=== PATIENT | male | born 1970 | race Asian ===

== ENCOUNTER 2018-12-02 08:11 | Emergency (ER) | payer SELFPAY ==
[2018-12-02 08:16] VITALS: BP 163/98
--- NOTE | 2018-12-02 08:26 | Emergency Department Report ---
ED Back Pain/Injury HPI - General Chief Complaint: Back Pain/Injury Stated Complaint: BACK PAIN Time Seen by Provider: 12/02/18 08:18 Source: patient, EMS Limitations: No Limitations - History of Present Illness Initial Comments: Patient is a 47-year-old gentleman who is complaining of over a year of lower back pain. Patient states pain is worse with movement better with rest. Patient does state he has some increased pain when he is at work and does do heavy lifting. Patient states he has not taken any wync-nbs-rggxhhb medications. He denies urinary or bladder dysfunction, hematuria, decreased urination, urinary frequency or dysuria. Patient states is been no nausea vomiting diarrhea and denies trauma. Severity scale (0 -10): 6 Quality: stabbing Consistency: constant Worsens With: movement - Related Data Allergies Allergy/AdvReac Type Severity Reaction Status Date / Time oxycodone [From OxyContin] Allergy Itching Verified 12/02/18 08:15 ED Review of Systems ROS: Stated complaint: BACK PAIN Other details as noted in HPI Comment: All other systems reviewed and negative ED Back Pain Physical Exam - Exam General: Vital signs noted. No distress. Alert and acting appropriately. Back/Abdomen: Yes Perilumbar Tenderness, No Abdominal Tenderness, No Perithor acic Tenderness, No Sacroiliac Tenderness, No Flank Tenderness, No Straight Leg Raise Pain Neuro: Yes Normal Sensation, Yes Normal DTR's, Yes Normal Gait, No Motor Weakness ED Course Vital Signs 12/02/18 08:15 Temperature 97.7 F Pulse Rate 103 H Respiratory 16 Rate Blood Pressure 163/98 O2 Sat by Pulse 97 Oximetry ED Medical Decision Making - Medical Decision Making Patient is a nominal emergency at this time. Patient's back pain is chronic. Patient clinically does not have cauda equina syndrome. The patient states he has not taken any dlmt-iju-hnkelfa medications. Patient will be referred to orthopedics. Patient also encouraged to take pqra-laj-lgqkohx ibuprofen up to 800 mg every 6-8 hours. Patient also given information on icing his back for inflammation. Critical care attestation.: If time is entered above; I have spent that time in minutes in the direct care of this critically ill patient, excluding procedure time. ED Disposition Clinical Impression: Back pain Qualifiers: Back pain location: low back pain Chronicity: chronic Back pain laterality: unspecified Sciatica presence: without sciatica Qualified Code(s): M54.5 - Low back pain; G89.29 - Other chronic pain Disposition: MED SCREENING EXAM-LEFT Is pt being admited?: No Does the pt Need Aspirin: No Condition: Stable Instructions: Chronic Back Pain (ED) Additional Instructions: Please take ibuprofen for back pain. He can take up to 800 mg every 6-8 hours Referrals: TENZIN REHMAN MD [Staff Physician] - 3-5 Days ALBANY DANE HOBBS MD [Referring] - 3-5 Days Time of Disposition: 08:26
== END 2018-12-02 08:42 | disposition left against medical advice (07) ==
LOC: ED 08:11
DX: M54.5 Low back pain (principal); G89.29 Other chronic pain; Z88.5 Allergy status to narcotic agent

== ENCOUNTER 2019-06-14 19:50 | Emergency (ER) | payer SELFPAY ==
[2019-06-14 19:55] VITALS: BP 130/77
[2019-06-14 20:22] LABS: Basophils # (Auto) 0.1 K/mm3 (0.0-0.1); Basophils % (Auto) 0.9 % (0.0-1.8); Eosinophils # (Auto) 0.5 K/mm3 (0.0-0.4); Eosinophils % (Auto) 8.4 % (0.0-4.3); Hematocrit 42.9 % (35.5-45.6); Hemoglobin 14.6 gm/dl (11.8-15.2); Lymphocytes # (Auto) 2.4 K/mm3 (1.2-5.4); Lymphocytes % (Auto) 37.7 % (13.4-35.0); Mean Corpuscular HGB Conc 34 % (32-34); Mean Corpuscular Volume 96 fl (84-94); Monocytes % (Auto) 15.8 % (0.0-7.3); Platelet Count 266 K/mm3 (140-440); Red Blood Count 4.48 M/mm3 (3.65-5.03); Red Cell Distribution Width 14.3 % (13.2-15.2)
[2019-06-14 20:44] LABS: Alanine Aminotransferase 20 units/L (7-56); Albumin 4.3 g/dL (3.9-5); BUN/Creatinine Ratio 14; Blood Urea Nitrogen 10 mg/dL (9-20); Calcium 9.2 mg/dL (8.4-10.2); Hemolysis Index 13
[2019-06-14] MEDS ORDERED: ONDANSETRON 4 MG/2 ML INJ IV STA (21:00)
[2019-06-14] MEDS ORDERED: SODIUM CHLORIDE 0.9% 1000 ML 1,000 ML IV ONE (21:00)
[2019-06-14] MEDS ORDERED: HYOSCYAMINE SUBL 0.125 MG TAB SL ONE (21:00)
--- NOTE | 2019-06-14 21:02 | Emergency Department Report ---
ED Abdominal Pain HPI - General Chief Complaint: Abdominal Pain Stated Complaint: ABDOMINAL PAIN Time Seen by Provider: 06/14/19 20:49 Source: patient Mode of arrival: Ambulatory Limitations: No Limitations - History of Present Illness MD Complaint: abdominal pain Location: diffuse Radiation: none Migration to: no migration Severity: mild Quality: dull Consistency: constant Improves With: nothing Worsens With: nothing Context: possible food poisoning (States that he made a chicken based sauce last night and ended again this morning and after eating it an hour later his symptoms began with abdominal cramping and nausea but no vomiting or diarrhea until he reached the emergency department about an hour ago had his first epis ode) Associated Symptoms: denies: vomiting, diarrhea, constipation, dysuria, hematuria, anorexia - Related Data Previous Rx's Medication Instructions Recorded Last Taken Type Hyoscyamine Subl [Levsin Sl 0.125 0.125 mg SL Q4HR PRN #30 tablet 06/14/19 Unknown Rx TAB] Ondansetron [Zofran ODT TAB] 8 mg PO Q12HR #14 tab.rapdis 06/14/19 Unknown Rx Allergies Allergy/AdvReac Type Severity Reaction Status Date / Time oxycodone [From OxyContin] Allergy Itching Verified 12/02/18 08:15 ED Review of Systems ROS: Stated complaint: ABDOMINAL PAIN Other details as noted in HPI Comment: All other systems reviewed and negative ED Past Medical Hx - Past Medical History Previous Medical History?: No - Surgical History Past Surgical History?: No Additional Surgical History: skin graft- left arm - Social History Smoking Status: Current Every Day Smoker Substance Use Type: Alcohol - Medications Home Medications: Home Medications Medication Instructions Recorded Confirmed Last Taken Type Hyoscyamine Subl [Levsin Sl 0.125 0.125 mg SL Q4HR PRN #30 tablet 06/14/19 Unknown Rx TAB] Ondansetron [Zofran ODT TAB] 8 mg PO Q12HR #14 tab.rapdis 06/14/19 Unknown Rx ED Physical Exam - General Limitations: No Limitations General appearance: alert, in no apparent distress - Head Head exam: Present: atraumatic, normocephalic, normal inspection - Eye Eye exam: Present: normal appearance, PERRL, EOMI. Absent: scleral icterus, conjunctival injection - ENT ENT exam: Present: mucous membranes moist - Neck Neck exam: Present: normal inspection - Respiratory Respiratory exam: Present: normal lung sounds bilaterally. Absent: respiratory distress - Cardiovascular Cardiovascular Exam: Present: regular rate, normal rhythm. Absent: systolic murmur, diastolic murmur, rubs, gallop - GI/Abdominal GI/Abdominal exam: Present: soft, tenderness, normal bowel sounds, other (No tenderness to Lopez's or McBurney's. No Molina sign no [place] no Rovsing there is diffuse tenderness with palpation abdomen is soft not distended). Absent: guarding, rebound, hypoactive bowel sounds, organomegaly, mass, pulsatile mass, hernia - Rectal Rectal exam: Present: deferred - Extremities Exam Extremities exam: Present: normal inspection - Back Exam Back exam: Present: normal inspection. Absent: CVA tenderness (R), CVA tenderness (L) - Neurological Exam Neurological exam: Present: alert, oriented X3 - Psychiatric Psychiatric exam: Present: normal affect, normal mood - Skin Skin exam: Present: warm, dry, intact, normal color. Absent: rash ED Course Vital Signs 06/14/19 19:53 Temperature 98.1 F Pulse Rate 93 H Respiratory 18 Rate Blood Pressure 130/77 O2 Sat by Pulse 100 Oximetry ED Medical Decision Making - Lab Data Result diagrams: 06/14/19 20:00 06/14/19 20:00 - Radiology Data Radiology results: [place] [address] Cat Scan Report Signed Patient: KE KENNEDY MR#: [id number] : 1970 Acct:[id number] Age/Sex: 48 / M ADM Date: 06/14/19 Loc: ED Attending Dr: Ordering Physician: TERESE ROCHA Date of Service: 06/14/19 Procedure(s): CT abdomen pelvis w con Accession Number(s): [id number] cc: TERESE ROCHA CT abdomen pelvis w con INDICATION / CLINICAL INFORMATION: MAIN: diffuse abdominal pain, [id number]. TECHNIQUE: All CT scans at this location are performed using CT dose reduction for ALARA by means of automated exposure control. COMPARISON: None available. FINDINGS: Limited lower thoracic images show no acute pulmonary disease. There is a 6 mm noncalcified pulmonary nodule in the right lower lobe (series #2, image 6). ABDOMEN: The gallbladder, liver, spleen, pancreas, kidneys and adrenal glands are normal. No acute findings are seen in the colon or small bowel. Pelvis: The appendix is normal. No dependent fluid collections. The urinary bladder appears normal. No skeletal abnormality. IMPRESSION: 1. No acute abnormalities. 2. Incidentally noted 6 mm right lower lobe pulmonary nodule. Follow-up CT imaging in 6-12 months is recommended. Signer Name: Helder Brown MD Signed: 06/14/2019 9:53 PM Workstation Name: [id number] Transcribed By: SUSHILA Dictated By: Helder Brown MD Electronically Authenticated By: Helder Brown MD Signed Date/Time: 06/14/192152 DD/ 48 TD/TT: - Medical Decision Making This patient presents with abdominal pain of unclear etiology. A CT scan was performed to evaluate for potential causes of the abdominal pain, however, neither the clinical exam nor the CT has identified an emergent etiology for the abdominal pain. Specifically, given the benign exam, the laboratory studies, and unremarkable CT, I have a very low suspicion for appendicitis, ischemic bowel, bowel perforation, or any other life threatening disease. I have discussed with the patient the level of uncertainty with undifferentiated abdominal pain and clearly explained the need to follow-up as noted on the discharge instructions, or return to the Emergency Department immediately if the pain worsens, develops fever, persistent and uncontrollable vomiting, or for any new symptoms or concerns. Critical care attestation.: If time is entered above; I have spent that time in minutes in the direct care of this critically ill patient, excluding procedure time. ED Disposition Clinical Impression: Abdominal pain, Diarrhea Disposition: DC-01 TO HOME OR SELFCARE Is pt being admited?: No Does the pt Need Aspirin: No Condition: Stable Instructions: Gastroenteritis (ED), Food Poisoning (ED), Acute Abdominal Pain (ED) Prescriptions: Hyoscyamine Subl [Levsin Sl 0.125 TAB] 0.125 mg SL Q4HR PRN #30 tablet PRN Reason: Spasms Ondansetron [Zofran ODT TAB] 8 mg PO Q12HR #14 tab.yohan
--- NOTE | 2019-06-14 21:57 | Cat Scan Report ---
CT abdomen pelvis w con INDICATION / CLINICAL INFORMATION: MAIN: diffuse abdominal pain, [id number]. TECHNIQUE: All CT scans at this location are performed using CT dose reduction for ALARA by means of automated e xposure control. COMPARISON: None available. FINDINGS: Limited lower thoracic images show no acute pulmonary disease. There is a 6 mm noncalcified pulmonary nodule in the right lower lobe (series #2, image 6). ABDOMEN: The gallbladder, liver, spleen, pancreas, kidneys and adrenal glands are normal. No acute findings are seen in the colon or small bowel. Pelvis: The appendix is normal. No dependent fluid collections. The urinary bladder appears normal. No skeletal abnormality. IMPRESSION: 1. No acute abnormalities. 2. Incidentally noted 6 mm right lower lobe pulmonary nodule. Follow-up CT imaging in 6-12 months is recommended. Signer Name: Helder Brown MD Signed: 06/14/2019 9:53 PM Workstation Name: [id number]
[2019-06-14 22:57] LABS: Bilirubin,Urine NEG (Negative); Blood,Urine NEG (Negative); Color,Urine Yellow (Yellow); Protein,Urine <15 mg/dL mg/dL (Negative); Urobilinogen,Urine < 2.0 mg/dL (<2.0)
== END 2019-06-14 23:10 | disposition home or self-care (01) ==
LOC: ED 19:50
DX: R10.84 Generalized abdominal pain (principal); R19.7 Diarrhea, unspecified; F17.200 Nicotine dependence, unspecified, uncomplicated; Z79.899 Other long term (current) drug therapy
CPT/HCPCS: 36415; 74177; 80053; 81001; 83690; 85025; 96361; 96374; 99284; J2405; J7030; Q9967

== ENCOUNTER 2019-09-08 09:10 | Emergency (ER) | payer SELFPAY ==
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
[2019-09-08] MEDS ORDERED: traMADol 50 MG TAB PO ONE (11:44)
[2019-09-08] MEDS ORDERED: SODIUM CHLORIDE 0.9% 1000 ML 1,000 ML IV ONE (11:45)
[2019-09-08] MEDS ORDERED: MORPHINE 2 MG/1 ML INJ IV ONE (11:45)
[2019-09-08] MEDS ORDERED: ONDANSETRON 4 MG/2 ML INJ IV ONE (11:46)
[2019-09-08 12:46] VITALS: BP 138/84
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
[2019-09-08 12:52] LABS: Alanine Aminotransferase 27 units/L (7-56); Albumin 4.5 g/dL (3.9-5); BUN/Creatinine Ratio 15; Blood Urea Nitrogen 12 mg/dL (9-20); Calcium 9.8 mg/dL (8.4-10.2); Hemolysis Index 12
[2019-09-08 12:54] LABS: Basophils % (Auto) 0.5 % (0.0-1.8); Eosinophils # (Auto) 0.1 K/mm3 (0.0-0.4); Eosinophils % (Auto) 1.9 % (0.0-4.3); Hemoglobin 15.5 gm/dl (11.8-15.2); Lymphocytes # (Auto) 1.8 K/mm3 (1.2-5.4); Lymphocytes % (Auto) 24.4 % (13.4-35.0); Mean Corpuscular HGB Conc 34 % (32-34); Mean Corpuscular Volume 97 fl (84-94); Monocytes # (Auto) 0.6 K/mm3 (0.0-0.8); Monocytes % (Auto) 8.4 % (0.0-7.3); Platelet Count 270 K/mm3 (140-440); Red Blood Count 4.74 M/mm3 (3.65-5.03); Red Cell Distribution Width 13.6 % (13.2-15.2)
--- NOTE | 2019-09-08 13:50 | Cat Scan Report ---
CTA CHEST WITH IV CONTRAST INDICATION: Chest pain, shortness of breath, rib pain, abnormal chest x-ray. TECHNIQUE: Axial CT images were obtained through the chest after injection of 100 cc Omnipaque 350 IV contrast. 3 plane MIP reconstructions were produced. All CT scans at this location are performed using CT dose reduction for ALARA by means of automated exposure control. COMPARISON: Right rib series from earlier today. FINDINGS: PULMONARY ARTERIES: Well-opacified. No pulmonary emboli. AORTA AND ARTERIES: No significant abnormality. MEDIASTINUM: No significant abnormality of the thyroid gland, airways or heart. No mass or lymphadeno ofelia. LUNGS: There is moderate emphysema with an upper lobe predominance. Numerous calcified and noncalcifi ed nodules are present throughout the right lung. The largest nodule is located posteriorly along the right lower lobe and correlates with the previously described radiographic abnormality, measuring 1. 8 x 1.7 cm on image 55 of series 2 with predominantly peripheral calcification. An adjacent solid non calcified nodule along the right lower lobe measures 1.3 x 0.9 cm on image 56 of series 2. No suspici ous area of consolidation, pneumothorax or pleural effusion. ADDITIONAL FINDINGS: None. UPPER ABDOMEN: No acute findings. BONES: There is an acute, mildly displaced fracture of the right fifth rib anteriorly. No other acute abnormality or aggressive appearing lesion. IMPRESSION: 1. No CT evidence for pulmonary embolism. 2. Multiple calcified and noncalcified right pulmonary nodules as above. A benign etiology such as pr ior granulomatous disease is favored. However, due to the size of some of these nodules in that some of the nodules are noncalcified, follow-up imaging is recommended to ensure stability. The noncalcifi ed right lower lobe nodule described above can be further evaluated with a PET CT and/or a follow-up CT of the chest without contrast in 3 months. 3. Acute right fifth rib fracture. Signer Name: Frandy Astorga MD Signed: 09/08/2019 1:45 PM Workstation Name: [id number]
== END 2019-09-08 14:36 | disposition home or self-care (01) ==
LOC: ED 09:10
DX: S22.31XA Fracture of one rib, right side, initial encounter for closed fracture (principal); R91.1 Solitary pulmonary nodule; F17.200 Nicotine dependence, unspecified, uncomplicated; Z98.890 Other specified postprocedural states; Z79.899 Other long term (current) drug therapy; Z88.8 Allergy status to other drugs, medicaments and biological substances; Y04.2XXA Assault by strike against or bumped into by another person, initial encounter; Y93.89 Activity, other specified; Y92.89 Other specified places as the place of occurrence of the external cause; Y99.8 Other external cause status
CPT/HCPCS: 36415; 71101; 71275; 80053; 85025; 86140; 96374; 96375; 99284; J2270; J2405; J7030; Q9967